=== PATIENT | male | born 1980 | race African-American/Black ===

== ENCOUNTER → 2021-03-16 15:24 | Outpatient (POV) | payer SELFPAY | PROVIDERS: Visit Provider Dermatology | DX: Z00.00 Encounter for general adult medical examination without abnormal findings (principal) ==

== ENCOUNTER 2021-06-26 22:13 | Emergency (ER) | payer OTHER, SELFPAY ==
[2021-06-26 22:14] VITALS: BP 134/82; PULSE 110; RESP 26; TEMP 37.7; O2SAT 94; BMI 26.6
--- NOTE | 2021-06-26 22:30 | XR_ITS ---
PROCEDURE INFORMATION: Exam: XR Chest Exam date and time: 06/26/2021 10:30 PM Age: 41 years old Clinical indication: Cough and fever and shortness of breath; Patient HX: Cough, SOA, fever, nonsmoker, body aches TECHNIQUE: Imaging protocol: XR of the chest. Views: 2 views. COMPARISON: No relevant prior studies available. FINDINGS: Lungs: Unremarkable. No consolidation. Pleural spaces: Unremarkable. No pleural effusion. No pneumothorax. Heart/Mediastinum: Unremarkable. No cardiomegaly. Bones/joints: Unremarkable. IMPRESSION: No acute findings.
--- NOTE | 2021-06-26 22:30 | ECG_ITS ---
APPROVED REPORT Exam: Resting ECG HR:88 bpm ECG Measurements Heart Rate 88 AXES TN 138 P 59 QRSd 74 QRS 44 QT 342 T 36 QTc 413 Conclusion Normal sinus rhythm Possible Left atrial enlargement Late r wave progression Abnormal ECG Electronically signed by : Scottie Castañeda, 06/27/2021 20:40:18
--- NOTE | 2021-06-26 22:33 | HMH.EDGENADL ---
ED Disposition Clinical Impression: Community acquired pneumonia Qualifiers: Laterality: right Lung location: lower lobe of lung Qualified Code(s): J18.9 - Pneumonia, unspecified organism Disposition: Home, Self-Care Condition on Discharge: Good Prescriptions: Amoxicillin [Amoxicillin 500mg Tab] 1,000 mg PO TID 7 Days #21 tab Transmission Status: Pending to [id number] RX: Azithromycin [Zithromax 1gm packet] 1 gm PO ONCE #1 packet Transmission Status: Pending to [id number] Referrals: Jun Aldana [Primary Care Provider] - - Critical Care Critical Care Time: No Attestation: On , the high probability of a clinically significant, sudden or life threatening deterioration of the following system(s) required my full and direct attention, intervention and personal management. The time I documented below is in addition to time spent performing reported procedures but includes the following listed in this critical care notation. Medical Decision Making - Ortiz Inquiry Pt receiving controlled substance: No Vital Signs: 06/26/21 22:14 Temperature 99.9 F H Temperature Source Oral Pulse Rate [Right] 110 H Respiratory Rate 26 H Blood Pressure [Right Arm] 134/82 Blood Pressure Mean [Right Arm] 99 Blood Pressure Source [Right Arm] Automatic Cuff Blood Pressure Position [Right Arm] Sitting 02 Sat by Pulse Oximetry 94 L Oxygen Delivery Method Room Air - Lab Data Lab Results 06/26/21 22:25: Chlamy pneumoniae PCR Not detected, Adenovirus (PCR) Not detected, B. pertussis DNA (PCR) Not detected, Coronavirus OC43 (PCR) Not detected, Coronavirus HKU1 (PCR) Not detected, Coronavirus 229E (PCR) Not detected, SARS-CoV-2 (PCR) Detected A, Coronavirus NL63 (PCR) Not detected, Human Metapneumovir PCR Not detected, Influenza A (H1) PCR Not detected, Influ A (H1N1/09) PCR Not detected, Influenza A (H3) PCR Not detected, Influenza Type A (PCR) Not detected, Influenza Type B (PCR) Not detected, M. pneumoniae (PCR) Not detected, Parainfluenza 1 (PCR) Not detected, Parainfluenza 2 (PCR) Not detected, Parainfluenza 3 (PCR) Not detected, Parainfluenza 4 (PCR) Not detected, RSV (PCR) Not detected, Entero/Rhino (PCR) Not detected 06/26/21 22:35: WBC 3.2 L, RBC 5.14, Hgb 15.7, Hct 44.1, MCV 85.8, MCH 30.5, MCHC 35.6 H, RDW 15.7, Plt Count 142, MPV 9.6, Neut % (Auto) 45.6, Lymph % (Auto) 44.6, Benson % (Auto) 6.2, Eos % (Auto) 2.1, Baso % (Auto) 1.3, Neut # (Auto) 1.5 L, Lymph # (Auto) 1.4, Benson # (Auto) 0.2, Eos # (Auto) 0.1, Baso # (Auto) 0.0 06/26/21 22:35: D-Dimer 1.36 H 06/26/21 22:35: Sodium 141, Potassium 3.6, Chloride 107, Carbon Dioxide 23, Anion Gap 14.6, BUN 10, Creatinine 1.00, Estimated Creat Clear 138, Estimated GFR 83, Est GFR ( Amer) 100, Glucose 112 H, Calcium 7.9 L, Total Bilirubin 0.9, AST 77 H, ALT 66, Alkaline Phosphatase 95, Total Protein 7.8, Albumin 4.2, Globulin 3.6 H, Albumin/Globulin Ratio 1.2 Result diagrams: 06/26/21 22:35 06/26/21 22:35 Orders (Tests/Meds): ED MEDICATIONS Generic Name Dose Route Start Last Admin Trade Name Freq PRN Reason Stop Dose Admin Lactated Ringer's 1,000 mls @ 999 mls/hr 06/26/21 22:30 06/26/21 22:35 Lactated Ringer's 1000 Ml Bag IV 06/26/21 23:30 999 mls/hr .Q1H1M HAKEEM Administration Discontinued Medications Generic Name Dose Route Start Last Admin Trade Name Freq PRN Reason Stop Dose Admin Iopamidol 70 ml 06/26/21 23:36 06/26/21 23:39 Iopamidol-370 (76%);100ml Bottle IV 06/26/21 23:37 70 ml ONCE ONE Administration Sodium Chloride 50 ml 06/26/21 23:36 06/26/21 23:38 0.9 % Sodium Chloride 50 Ml Vial IV 06/26/21 23:37 50 ml ONCE ONE Administration Sodium Chloride 10 ml 06/26/21 23:36 06/26/21 23:39 Sodium Chloride 0.9% 10ml Syr (Rad Only) IV 06/26/21 23:37 10 ml ONCE ONE Administration ORDERS Category Date Time Status ECG Request by /Sonali Stat Y 06/26/21 22:30 Ordered - ECG Data Tracing #1 ECG
[2021-06-26 22:36] LABS: Adenovirus,PCR Not Detected (NotDetected); Coronavirus 229E Not Detected (NotDetected); Coronavirus NL63 Not Detected (NotDetected); Coronavirus OC43 Not Detected (NotDetected); Coronovirus HKU1,PCR Not Detected (NotDetected)
[2021-06-26 22:49] LABS: Basophils % 1.3 % (0.1-2.0); Eosinophils # 0.1 K/mm3 (0.0-0.4); Eosinophils % 2.1 % (0.1-12.0); Hematocrit 44.1 % (42.0-52.0); Hemoglobin 15.7 g/dL (14.1-18.0); Lymphocytes # 1.4 K/mm3 (0.7-4.5); Lymphocytes % 44.6 % (10-50); Mean Corpuscular HGB Conc 35.6 g/dL (31.8-35.4); Mean Corpuscular Hemoglobin 30.5 pg (27.0-31.2); Mean Corpuscular Volume 85.8 fl (80-94); Mean Platelet Volume 9.6 fl (7.4-10.4); Monocytes # 0.2 K/mm3 (0.1-1.0); Monocytes % 6.2 % (1.7-9.3); Neutrophils # 1.5 K/mm3 (1.8-7.8); Neutrophils % 45.6 % (37.0-80.0); Platelet Count 142 K/mm3 (142-424); Red Blood Count 5.14 M/mm3 (4.60-6.20); Red Cell Distribution Width 15.7 % (11.5-17.5); White Blood Count 3.2 K/mm3 (4.8-10.8)
[2021-06-26 23:01] LABS: Alanine Aminotransferase 66 U/L (12-78); Albumin Level 4.2 g/dl (3.5-5.0); Albumin/Globulin Ratio 1.2 (1.1-1.8); Alkaline Phosphatase 95 U/L (38-126); Anion Gap 14.6 mEq/L (5-15); Aspartate Amino Transferase 77 U/L (17-59); Bilirubin,Total 0.9 mg/dl (0.2-1.3); Blood Urea Nitrogen 10 mg/dl (9-20); Calcium 7.9 mg/dl (8.4-10.2); Carbon Dioxide 23 mmol/L (22.0-30.0); Chloride 107 mmol/L (98-107); Creatinine Clearance Estimated 138 mL/min (50-200); Estimated Glomerular Filt Rate 83 ml/min (>60); GFR (African American) 100 ML/MIN (>60); Globulin 3.6 g/dL (1.3-3.2); Glucose 112 mg/dl (74-100); Potassium 3.6 mmoL/L (3.5-5.1); Sodium 141 mmol/L (136-145); Total Protein,Serum 7.8 g/dl (6.3-8.2)
[2021-06-26 23:05] LABS: D-Dimer 1.36 ug/mL (0.0-0.5)
--- NOTE | 2021-06-26 23:11 | CT_ITS ---
PROCEDURE INFORMATION: Exam: CTA Chest With Contrast Exam date and time: 06/26/2021 11:11 PM Age: 41 years old Clinical indication: Cough and fever and shortness of breath; Patient HX: SOA, cough, fever, body aches, elevated d dimer; Additional info: Hypoxia tachycardia elevated d-dimer TECHNIQUE: Imaging protocol: Computed tomographic angiography of the chest with contrast. 3D rendering (Not supervised by radiologist): MIP and/or 3D reconstructed images were created by the technologist. Radiation optimization: All CT scans at this facility use at least one of these dose optimization techniques: automated exposure control; mA and/or kV adjustment per patient size (includes targeted exams where dose is matched to clinical indication); or iterative reconstruction. Contrast material: ISOVUE 370; Contrast volume: 70 ml; Contrast route: INTRAVENOUS (IV); COMPARISON: CR XR CHEST 2V 06/26/2021 10:31 PM FINDINGS: Pulmonary arteries: No evidence of pulmonary embolus to the segmental level. Aorta: Unremarkable. No aortic aneurysm. No aortic dissection. Lungs: Mild bilateral dependent atelectasis. There is a small infiltrates in the right lower lobe base laterally. This is compatible with bacterial pneumonia. Mild bronchial wall thickening seen compatible bronchitis. A calcified nodule seen in the right lower lobe. A 6 mm nodule is seen in the right base laterally on image 243 of series 2. For patients at low risk (minimal or absent history of smoking and of other known risk factors), no routine follow-up is indicated. For patients at high risk (history of smoking or of other known risk factors), consider optional CT Chest at 12 months. (Reference: Vidhi) Pleural spaces: Unremarkable. No pneumothorax. No pleural effusion. Heart: Unremarkable. No cardiomegaly. No pericardial effusion. Lymph nodes: Mild mediastinal adenopathy. Some of these nodes are calcified. Bones/joints: Unremarkable. No acute fracture. Soft tissues: Mild bilateral gynecomastia. IMPRESSION: 1. No evidence of pulmonary embolus 2. Small right lower lobe infiltrate compatible with pneumonia. 3. A 6 mm noncalcified nodule is seen in the right costophrenic angle laterally. If the patient is high risk, consider follow-up in 12 months. REFERENCES: Vidhi Beckford, et al. Guidelines for Management of Incidental Pulmonary Nodules Detected on CT Images: From the Fleischner Society 2017. Radiology. 2017;284(1):228-243.
[2021-06-26 23:58] LABS: Bordetella Pertussis Not Detected (NotDetected); Chlamydophila Pneumoniae, PCR Not Detected (NotDetected); Coronavirus 19, PCR Detected (NotDetected); Human Metapneumovirus Not Detected (NotDetected); Influenza A, PCR Not Detected (NotDetected); Influenza AH1, 2009 Not Detected (NotDetected); Influenza AH1, PCR Not Detected (NotDetected); Influenza AH3,PCR Not Detected (NotDetected); Influenza B, PCR Not Detected (NotDetected); Mycoplasma Pneumoniae, PCR Not Detected (NotDetected); Parainfluenza 1, PCR Not Detected (NotDetected); Parainfluenza 2, PCR Not Detected (NotDetected); Parainfluenza 3, PCR Not Detected (NotDetected); Parainfluenza 4, PCR Not Detected (NotDetected); Respiratory Syncytial Virus Not Detected (NotDetected); Rhinovirus/Enterovirus Not Detected (NotDetected)
[2021-06-27 00:11] VITALS: BP 131/82; PULSE 88; RESP 21; TEMP 37.2; O2SAT 97
--- NOTE | 2021-06-27 00:44 | PC.NURSE ---
I, Dr. Vergara, called the patient to inform him on the pulmonary nodule that was noted on CT and will need outpatient followup. He was advised to contact his PCP for further outpatient workup.
== END 2021-06-27 00:24 | disposition home or self-care (01) ==
PROVIDERS: Emergency Provider Emergency Medicine; PCP Family Medicine
DX: J12.82 Pneumonia due to coronavirus disease 2019 (principal)
CPT/HCPCS: 71046; 71275; 80053; 85025; 85378; 87581; 87633; 87798; 93005; 96365; 99283; Q9967

== ENCOUNTER 2024-01-22 16:27 | Outpatient (CLI) | payer BC, SELFPAY ==
[2024-01-22 16:50] LABS: Basophils % 0.4 % (0.1-2.0); Eosinophils # 0.4 K/mm3 (0.0-0.4); Eosinophils % 5.5 % (0.1-12.0); Hematocrit 45.3 % (42.0-52.0); Hemoglobin 15.1 g/dL (14.1-18.0); Lymphocytes # 2.9 K/mm3 (0.7-4.5); Lymphocytes % 36.2 % (10-50); Mean Corpuscular HGB Conc 33.3 g/dL (31.8-35.4); Mean Corpuscular Hemoglobin 30.9 pg (27.0-31.2); Mean Corpuscular Volume 92.6 fl (80-94); Mean Platelet Volume 8.2 fl (7.4-10.4); Monocytes # 0.4 K/mm3 (0.1-1.0); Monocytes % 4.3 % (1.7-9.3); Neutrophils # 4.3 K/mm3 (1.8-7.8); Neutrophils % 53.6 % (37.0-80.0); Platelet Count 239 K/mm3 (142-424); Red Blood Count 4.89 M/mm3 (4.60-6.20); Red Cell Distribution Width 15.9 % (11.5-17.5)
[2024-01-22 17:11] LABS: Alanine Aminotransferase 127 U/L (12-78); Alkaline Phosphatase 93 U/L (38-126); Aspartate Amino Transferase 79 U/L (17-59); Bilirubin,Indirect 0.6 mg/dL (0.0-0.9); Bilirubin,Total 0.6 mg/dl (0.2-1.3); Bilirubin,Unconjugated 0.5 mg/dL (0.0-1.1); Blood Urea Nitrogen 13 mg/dl (9-20); Calcium 8.8 mg/dl (8.4-10.2); Carbon Dioxide 26 mmol/L (22.0-30.0); Chol/HDL Ratio 4.6 (1-3.5); Cholesterol 152 mg/dl (140-200); Estimated Glomerular Filt Rate 82 ml/min (>60); GFR (African American) 99 ML/MIN (>60); Glucose 105 mg/dl (74-100); HDL Cholesterol 33 mg/dl (40-60); Triglycerides 223 mg/dl (30-150); VLDL Cholesterol 45 mg/dL (0-40)
[2024-01-22 17:12] LABS: Albumin Level 4.1 g/dl (3.5-5.0); Anion Gap 9.1 mEq/L (5-15); Chloride 111 mmol/L (98-107); Magnesium 2.2 mg/dl (1.6-2.3); Potassium 4.1 mmoL/L (3.5-5.1); Sodium 142 mmol/L (136-145); Total Protein,Serum 7.1 g/dl (6.3-8.2)
[2024-01-22 17:22] LABS: Direct LDL Cholesterol 75.18 mg/dL (100-129)
[2024-01-22 17:27] LABS: Free T4 (Free Thyroxine) 0.84 ng/dl (0.78-2.19)
[2024-01-22 17:41] LABS: Thyroid Stimulating Hormone 1.33 uIU/mL (0.465-4.68)
== END 2024-01-22 23:59 ==
LOC: LAB 16:27
PROVIDERS: Visit Provider Internal Medicine
DX: R06.00 Dyspnea, unspecified (principal); R07.9 Chest pain, unspecified; R00.0 Tachycardia, unspecified; R94.31 Abnormal electrocardiogram [ECG] [EKG]; R60.0 Localized edema; R06.83 Snoring; R40.0 Somnolence
CPT/HCPCS: 36415; 80048; 80061; 80076; 83735; 84439; 84443; 85025; 93225

== ENCOUNTER 2024-02-06 12:00 | Outpatient (CLI) | payer BC, SELFPAY ==
--- NOTE | 2024-02-06 12:01 | CT_ITS ---
APPROVED REPORT [employer]: CLINICAL INDICATION Chest Pain TECHNIQUE Image Acquisition: A 128 slice MDCT scanner ([employer] View) was used for data acquisition. A noncontrast coronary calcium scan was performed. A CT attenuation threshold of 130 Hounsfield units (HU) was used for the detection of calcium in contiguous voxels of 1 sq mm in area to be counted as individual lesions. Bolus tracking in the ascending aorta with a threshold of 180 HU was performed. Immediately afterwards, ECG synchronized cardiac CT was then performed from the cardiac base to apex using retrospective gating with ECG tube current modulation. A total of 85 mL of Isovue 370 mg/mL contrast medium was administered at 5 mL/sec followed by a saline flush using a biphasic injection protocol. A tube voltage of 120 KVp was used. The patient received the following medications prior to the cardiac CT. 125 mg of oral metoprolol 15 mg of oral ivabradine 0.8 mg of sublingual nitroglycerin The average heart rate at the time of acquisition was 65 bpm and regular. Image Reconstruction Transaxial images were reconstructed at 0.67 mm slide thickness. Data was reviewed interactively on an advanced workstation capable of 2 and 3-dimensional displays in all conventional reconstruction formats, including multiplanar reformations, maximum intensity projections, curved multiplanar reformations, and volume rendered reconstructions. When applicable, selected routine images describing the relevant coronary anatomy and pathology were saved and sent to PACS. Complications None Technical Quality Overall image quality was good. Coronary artery opacification was adequate. Total DLP (Dose-Length Product) is 1364.6 mGy-cm. The reported value represents the total of one or more individual components during the CT acquisition of this date and at this time, and as such, the same value may appear in more than one CT report depending on the interpreting/reporting physicians. COMPARISON None FINDINGS CT Coronary Calcium Scoring LMA (Left Main Artery) = 0 LAD (Left Anterior Descending) = 0 LCX (Left Coronary Circumflex) = 0 RCA (Right Coronary Artery) = 0 Total Calcium Score = 0 using the AJ-130 method. The interpretation of the calcium heart score is based on the following continuum*: 0 = no calcified plaque detected (risk of coronary artery disease is very low ??? less than 5%) 1-10 = calcium detected in extremely minimal levels (risk of coronary diseases is still low ??? less than 10%) 11-100 = mild levels of plaque detected with certainty (mild or minimal narrowing of heart arteries is likely) 101-400 = definite,at least moderate levels of plaque detected (relatively high risk of a heart attack within 3-5 years) >401-999 = extensive levels of plaque detected (high risk of heart attack, high levels of vascular disease are present, high likelihood of at least one significant coronary narrowing) *The calcium heart score quantifies the burden of coronary calcification/plaque in the coronary arteries. The calcium heart score is not able to evaluate the presence or burden of non-calcified (i.e. soft) plaque. There is no identifiable calcification in the aortic valve, mitral annulus or mitral valve, pericardium, or myocardium. Coronary CT Angiography The coronary arterial system is right dominant. Quantitative Stenosis Grading: Left Main (LM): The left main originates normally from the left sinus of Valsalva. The LM trifurcates into the left anterior descending artery, ramus intermedius, and left circumflex artery. The LM is patent with no evidence of atherosclerosis. Left Anterior Descending (LAD) and Diagonal Branches: The LAD gives off 2 diagonal branches. The LAD and its branches are patent with no evidence of atherosclerosis. There is no evidence of LAD-myocardial bridge. Ramus-intermedius (RI): The RI is patent. Left Circumflex (LCX) and Obtuse Marginals (OM): The LCX gives off 2 Obtuse Marginal (OM) branches. The LCX and its branches are patent with no evidence of atherosclerosis. Right Coronary Artery (RCA): The RCA originates normally from the right sinus of Valsalva. The RCA gives off a posterior descending artery (PDA) and posterolateral (PL) branches. The RCA and its branches are patent with no evidence of atherosclerosis. Non-Coronary Cardiac Findings: Analysis of the left ventricular (LV) structure and function was performed after 3-D reconstruction of the LV from axial images, with user-corrected automatic contouring for assessment of LV volumes and user-defined reconstruction from oblique planes for measurement of 3-D cardiac structure and function. -The left ventricle systolic function is normal. -There is no left atrial appendage filling defect. Two right pulmonary veins and two left pulmonary veins drain normally into the left atrium. -No pericardial thickening or calcification. -Central and branch pulmonary arteries in the [id number] are unremarkable. -Thoracic aorta within the visualized thoracic aortic-branches in the [id number] is unremarkable. Extracardiac Structures No significant extra-cardiac findings. Note, however, that this study is focused on the cardiac findings. IMPRESSION -No coronary calcification with an Agatston score = 0 using the AJ-130 method. -No evidence of significant flow-limiting atherosclerosis of the coronary arteries. -No evidence of coronary anomalies or myocardial bridges. -CAD-RADS 0. Management recommendations per ACC/AHA guidelines*, as clinically appropriate. *Recommendations: CAD RADS 0: Reassurance. Consider non-atherosclerotic causes of chest pain. CAD RADS 1: Consider non-atherosclerotic causes of chest pain. Consider preventive therapy and risk factor modification. CAD RADS 2: Consider non-atherosclerotic causes of chest pain. Consider preventive therapy and risk factor modification, particularly for patients with nonobstructive plaque in multiple segments. CAD RADS 3: Consider further functional testing. Consider symptom-guided anti-ischemic and preventive pharmacotherapy as well as risk factor modification per published guideline statements. CAD RADS 4A: Consider further functional testing or invasive coronary angiography with revascularization per published guideline statements. Consider symptom-guided anti-ischemic and preventive pharmacotherapy as well as risk factor modification per published guideline statements. CAD RADS 4B: Invasive coronary angiography recommended with revascularization per published guideline statements. Consider symptom-guided anti-ischemic and preventive pharmacotherapy as well as risk factor modification per published guideline statements. CAD RADS 5: Consider invasive angiography and/or viability assessment with revascularization per published guideline statements. Consider symptom-guided anti-ischemic and preventive pharmacotherapy as well as risk factor modification per published guideline statements. CRITICAL RESULT None COMMUNICATION Per this written report The coronary and cardiac findings of this CCTA were reviewed, reported, and signed by Malick Hamm MD (Cardiology Manager) Conclusion Electronically signed by : Angelia Hamm MD 02/06/2024 20:52:23
[2024-02-06 12:13] VITALS: BMI 32.3
[2024-02-06] MEDS: IVABRADINE HCL 7.5MG TABLET PO (12:20)
[2024-02-06] MEDS: METOPROLOL TARTRATE 50MG TABLET PO ×2 (12:20→13:15)
[2024-02-06 14:10] VITALS: BP 115/79; PULSE 62; RESP 18; O2SAT 98
[2024-02-06] MEDS: NITROGLYCERIN 0.4MG SL TABLET SL (14:10)
[2024-02-06 14:15] VITALS: BP 104/68; PULSE 64; RESP 18; O2SAT 98
[2024-02-06 14:20] VITALS: BP 104/56; PULSE 68; RESP 18; O2SAT 99
[2024-02-06] MEDS: IOPAMIDOL-370 (76%);100ML BOTTLE 85 ML IV (14:24)
[2024-02-06] MEDS: 0.9 % SODIUM CHLORIDE 50 ML VIAL IV (14:24)
[2024-02-06] MEDS: SODIUM CHLORIDE 0.9% 10ML SYR (RAD ONLY) 10 ML IV (14:24)
[2024-02-06 14:25] VITALS: BP 109/61; PULSE 64; RESP 18; O2SAT 98
--- NOTE | 2024-02-06 14:29 | CA_ITS ---
APPROVED REPORT EXAM: Comprehensive 2D, Doppler, and color-flow Echocardiogram Cloth Shrinker: Grace Nguyễn RVT Ht: 6 ft 1 in Wt: 251lbs BSA: 2.37 BP: 146/84 mmHg Indications: CP,SOA,ABN EKG,EDEMA,SMOKER 2D Dimensions LA Volume 34.60 mL LA Volume Index 14.60 mL/m2 (M/F) 16-34 M-Mode Dimensions RVDd 3.72 cm (0.9-2.6) LA Diam 3.02 cm (1.9-4.0) LVDd 4.30 cm (3.5-5.7) LVDs 2.60 cm (3.5-5.7) IVSd 1.48 cm (0.6-1.1) PWd 0.90 cm (0.6-1.1) EF (Teich) 70.40% FS 39.50% EDV (Teich) 83.10 mL TAPSE 1.70 (<1.7) ESV (Teich) 24.60 mL LV Diastology E Decel Time 193 (160-240 msec) E/A Ratio 1.3 Aortic Valve OMER Index 1.47 cm2/m2 AoV Peak Fam. 99.0 (50-130 cm/s) AO Peak GR. 3.90 mmHg AO Mean GR. 2.10 (<5 mmHg) AO VTI 21.8 (18-25 cm) OMER (VTI) 3.57 (2.5-4.5 cm2) Mitral Valve MV E Max Fam. 61.0 (40-130 cm/s) MV A Velocity 48.0 (40-130 cm/s) E/A Ratio 1.28 MV PHT 57.0 ms Pulmonary Valve PV Peak Velocity 47.0 (50-150 cm/s) Tricuspid Valve TR P. Velocity 247.00 cm/s RAP Estimate 10.00 mmHg RVSP 34.40 mmHg Left Ventricle The left ventricle is normal size. The left ventricular systolic function is normal. The left ventricular ejection fraction is within the normal range. Proximal septal thickening is noted. There is normal LV segmental wall motion. The left ventricular diastolic function is normal. LVEF is 55%. Right Ventricle The right ventricle is mildly dilated. The right ventricular systolic function is borderline hypokinetic. Atria The left atrium size is normal. The right atrium size is normal. There is no Doppler evidence of interatrial shunt. Aortic Valve The aortic valve opens well. There is no aortic valvular stenosis. No aortic regurgitation is present. Mitral Valve The mitral valve is normal in structure. No evidence of mitral valve stenosis. There is no mitral valve regurgitation noted. Tricuspid Valve The tricuspid valve leaflets are thin and pliable. Trace tricuspid regurgitation. There is insufficient TR jet to estimate RVSP. Pulmonic Valve The pulmonary valve is normal in structure. Trace pulmonic regurgitation. Great Vessels The aortic root is normal in size. The ascending aorta is normal in size. IVC is normal in size and collapses >50% with inspiration. Pericardium There is no pericardial effusion. Other Information Study Quality: Fair Conclusion Normal LV systolic function. Mild RV dilation with borderline hypokinetic RV function. No significant valvular stenosis or regurgitation. Electronically signed by : Angelia Hamm MD 02/08/2024 00:31:15
== END 2024-02-06 23:59 | disposition home or self-care (01) ==
PROVIDERS: PCP Internal Medicine; Visit Provider Internal Medicine
DX: R06.00 Dyspnea, unspecified (principal); R07.9 Chest pain, unspecified; R94.31 Abnormal electrocardiogram [ECG] [EKG]; R00.0 Tachycardia, unspecified; R60.0 Localized edema; R06.83 Snoring; R40.0 Somnolence
CPT/HCPCS: 75571; 75574; 93306; Q9967

== ENCOUNTER 2024-03-01 13:46 | Outpatient (CLI) | payer BC, SELFPAY ==
--- NOTE | 2024-03-01 13:49 | CT_ITS ---
FINAL REPORT CLINICAL HISTORY: SOB COMPARISON: 06/26/2021 FINDINGS: Thin section axial CT images of the chest were obtained with contrast. 3D reformatted images were also obtained. This study was performed with techniques to keep radiation doses as low as reasonably achievable (ALARA). Individualized dose reduction techniques using automated exposure control or adjustment of mA and/or kV according to the patient''s size were employed. There is no evidence of pulmonary embolism. There is no evidence of thoracic aortic aneurysm or dissection. There is no evidence of mediastinal or hilar mass or adenopathy. There is no evidence of pulmonary mass or nodule. There is mild atelectasis. Limited images of the upper abdomen are unremarkable. IMPRESSION: No evidence of pulmonary embolism. Mild atelectasis. Reviewed, Interpreted and Dictated by Dru Choudhary III, MD Transcribed by Michelle Belcher Authenticated and [facility]
[2024-03-01] MEDS: 0.9 % SODIUM CHLORIDE 50 ML VIAL IV (14:18)
[2024-03-01] MEDS: SODIUM CHLORIDE 0.9% 10ML SYR (RAD ONLY) 10 ML IV (14:18)
[2024-03-01] MEDS: IOPAMIDOL-370 (76%);100ML BOTTLE 75 ML IV (14:19)
== END 2024-03-01 23:59 ==
LOC: RAD 13:46
PROVIDERS: Visit Provider Internal Medicine Pulmonary Disease
DX: R06.09 Other forms of dyspnea (principal); R07.9 Chest pain, unspecified; I51.7 Cardiomegaly; R00.0 Tachycardia, unspecified; R74.8 Abnormal levels of other serum enzymes; R60.0 Localized edema
CPT/HCPCS: 71275; Q9967

== ENCOUNTER 2024-10-10 12:03 | Outpatient (CLI) | payer BC, SELFPAY ==
--- NOTE | 2024-10-10 12:07 | XR_ITS ---
FINAL REPORT CLINICAL HISTORY: SOB x 1 month COMPARISON: None FINDINGS: Two views of the chest were obtained. The heart size and pulmonary vascularity are within normal limits. The mediastinum is normal. Mild right base opacities likely represent atelectasis or pneumonia. There is no pneumothorax. The bony thorax is intact. IMPRESSION: Mild right base opacities, likely atelectasis or pneumonia. Reviewed, Interpreted and Dictated by Dru Choudhary III, MD Transcribed by Rosalina Kimble Authenticated and [facility]
[2024-10-10 12:16] LABS: Adenovirus,PCR Not Detected (NotDetected); Bordetella Pertussis Not Detected (NotDetected); Chlamydophila Pneumoniae, PCR Not Detected (NotDetected); Coronavirus 19, PCR Not Detected (NotDetected); Coronavirus 229E Not Detected (NotDetected); Coronavirus NL63 Not Detected (NotDetected); Coronavirus OC43 Not Detected (NotDetected); Coronovirus HKU1,PCR Not Detected (NotDetected); Human Metapneumovirus Not Detected (NotDetected); Influenza A, PCR Not Detected (NotDetected); Influenza AH1, 2009 Not Detected (NotDetected); Influenza AH1, PCR Not Detected (NotDetected); Influenza AH3,PCR Not Detected (NotDetected); Influenza B, PCR Not Detected (NotDetected); Microscopic, Urine URINE MICROSCOPIC (MICROSCOPIC); Mycoplasma Pneumoniae, PCR Not Detected (NotDetected); Parainfluenza 1, PCR Not Detected (NotDetected); Parainfluenza 2, PCR Not Detected (NotDetected); Parainfluenza 3, PCR Not Detected (NotDetected); Parainfluenza 4, PCR Not Detected (NotDetected); Respiratory Syncytial Virus Not Detected (NotDetected); Rhinovirus/Enterovirus Not Detected (NotDetected)
[2024-10-10 12:48] LABS: Basophils # 0.1 K/mm3 (0-0.2); Basophils % 0.8 % (0.1-2.0); Eosinophils # 0.8 K/mm3 (0.0-0.4); Eosinophils % 8.8 % (0.1-12.0); Hematocrit 42.1 % (42.0-52.0); Hemoglobin 14.8 g/dL (14.1-18.0); Lymphocytes # 2.6 K/mm3 (0.7-4.5); Lymphocytes % 30.5 % (10-50); Mean Corpuscular HGB Conc 35.1 g/dL (31.8-35.4); Mean Corpuscular Hemoglobin 29.6 pg (27.0-31.2); Mean Corpuscular Volume 84.3 fl (80-94); Mean Platelet Volume 8.3 fl (7.4-10.4); Monocytes # 0.5 K/mm3 (0.1-1.0); Monocytes % 5.2 % (1.7-9.3); Neutrophils # 4.7 K/mm3 (1.8-7.8); Neutrophils % 54.7 % (37.0-80.0); Platelet Count 211 K/mm3 (142-424); Red Blood Count 4.99 M/mm3 (4.60-6.20); Red Cell Distribution Width 16.1 % (11.5-17.5); White Blood Count 8.5 K/mm3 (4.8-10.8)
[2024-10-10 12:56] LABS: Appearance,Urine CLEAR (Clear); Bilirubin,Urine Negative (Negative); Blood, Urine Negative (Negative); Color,Urine YELLOW (Yellow); Glucose,Urine (UA) Negative (Negative); Ketones,Urine Negative (Negative); Leukocyte Esterase,Urine Negative (Negative); Nitrate,Urine Negative (Negative); PH,Urine 7.5 (5.0-8.5); Protein,Urine Negative (Negative); Urobilinogen,Urine 0.2 EU/dl (0.2)
[2024-10-10 13:05] LABS: D-Dimer 1.01 ug/mL (0.0-0.5)
[2024-10-10 13:15] LABS: Alanine Aminotransferase 68 U/L (12-78); Albumin/Globulin Ratio 1.4 (1.1-1.8); Alkaline Phosphatase 96 U/L (38-126); Aspartate Amino Transferase 36 U/L (17-59); Bilirubin,Total 0.8 mg/dl (0.2-1.3); Blood Urea Nitrogen 10 mg/dl (9-20); Calcium 8.6 mg/dl (8.4-10.2); Carbon Dioxide 24 mmol/L (22.0-30.0); Chloride 110 mmol/L (98-107); Chol/HDL Ratio 4.9 (1-3.5); Cholesterol 153 mg/dl (140-200); Estimated Glomerular Filt Rate 92 ml/min (>60); GFR (African American) 111 ML/MIN (>60); Globulin 2.8 g/dL (1.3-3.2); Glucose 81 mg/dl (74-100); HDL Cholesterol 31 mg/dl (40-60); Iron 87 ug/dL (49-181); Sodium 141 mmol/L (136-145); Total Protein,Serum 6.8 g/dl (6.3-8.2); Triglycerides 292 mg/dl (30-150); VLDL Cholesterol 58 mg/dL (0-40)
[2024-10-10 13:21] LABS: Bacteria,Urine Trace /lpf; Squamous Epithelial Cell,Urine Occasional #/hpf (0-5)
[2024-10-10 13:26] LABS: C-Reactive Protein 3.9 mg/L (0-4); Direct LDL Cholesterol 72.08 mg/dL (100-129); Total Iron Binding Capacity 368 ug/dL (261-462); Total Protein,Urine Random < 5.0 mg/dL (0.0-12.0)
[2024-10-10 13:33] LABS: Hemoglobin A1C 5.8 % (4.0-6.0)
[2024-10-10 13:36] LABS: 25-OH Vitamin D, Total < 12.8 ng/mL (30-100)
[2024-10-10 13:46] LABS: Thyroid Stimulating Hormone 0.98 uIU/mL (0.465-4.68)
[2024-10-10 13:50] LABS: Ferritin 87.2 ng/ml (17.9-464)
[2024-10-10 13:52] LABS: Erythrocyte Sedimentation Rate 15 mm/hr (0-15)
[2024-10-10 14:05] LABS: Vitamin B12 732 pg/mL (239-931)
[2024-10-10 14:33] LABS: HIV (1&2) Antibody Rapid NONREACTIVE (NONREACTIVE)
--- NOTE | 2024-10-10 14:48 | CT_ITS ---
PROCEDURE INFORMATION: Exam: CTA Chest With Contrast Exam date and time: 10/10/2024 2:57 PM Age: 44 years old Clinical indication: Shortness of breath; Additional info: Dyspnea, elevated d-dimer TECHNIQUE: Imaging protocol: Computed tomographic angiography of the chest with contrast. Exam focused on the arteries. 3D rendering (Not supervised by radiologist): MIP and/or 3D reconstructed images were created by the technologist. Radiation optimization: All CT scans at this facility use at least one of these dose optimization techniques: automated exposure control; mA and/or kV adjustment per patient size (includes targeted exams where dose is matched to clinical indication); or iterative reconstruction. Contrast material: ISOVUE 370; Contrast volume: 100 ml; Contrast route: INTRAVENOUS (IV); COMPARISON: No relevant prior studies available. FINDINGS: Pulmonary arteries: Nondiagnostic contrast bolus for detection of pulmonary emboli; contrast material is in the pulmonary veins and aorta rather than pulmonary arteries. Aorta: Unremarkable. No aortic aneurysm. No aortic dissection. Lungs: Calcified right lower lobe granuloma. Pleural spaces: Unremarkable. No pneumothorax. No pleural effusion. Heart: Unremarkable. No cardiomegaly. No pericardial effusion. Lymph nodes: Calcified right hilar granulomata. No enlarged lymph nodes. Bones/joints: Spondylosis of the spine. Soft tissues: Unremarkable. IMPRESSION: Nondiagnostic study for detection of pulmonary emboli.
[2024-10-10] MEDS: IOPAMIDOL-370 (76%);100ML BOTTLE 100 ML IV (15:07)
[2024-10-10] MEDS: 0.9 % SODIUM CHLORIDE 50 ML VIAL IV (15:07)
[2024-10-10] MEDS: SODIUM CHLORIDE 0.9% 10ML SYR (RAD ONLY) 10 ML IV (15:07)
[2024-10-11 07:24] LABS: HCV Ab Non Reactive (Non Reactive)
[2024-10-12 12:16] LABS: Peripheral Smear Review Scanned Result
== END 2024-10-10 23:59 | disposition home or self-care (01) ==
LOC: LAB 12:04
PROVIDERS: PCP Nurse Practitioner Family; Visit Provider Nurse Practitioner Family
DX: R06.09 Other forms of dyspnea (principal); Z11.4 Encounter for screening for human immunodeficiency virus [HIV]; Z13.1 Encounter for screening for diabetes mellitus; E78.5 Hyperlipidemia, unspecified; R53.83 Other fatigue; I10 Essential (primary) hypertension; E53.8 Deficiency of other specified B group vitamins; Z11.59 Encounter for screening for other viral diseases; I51.7 Cardiomegaly
CPT/HCPCS: 36415; 71046; 71275; 80050; 80053; 80061; 81001; 82306; 82607; 82728; 83036; 83540; 83550; 84156; 84439; 84443; 85025; 85378; 85651; 86140; 86803; 87086; 87389; 87633; Q9967

== ENCOUNTER 2024-10-11 08:07 | Outpatient (CLI) | payer BC, SELFPAY ==
--- NOTE | 2024-10-11 08:10 | CT_ITS ---
PROCEDURE INFORMATION: Exam: CTA Chest With Contrast Exam date and time: 10/11/2024 8:15 AM Age: 44 years old Clinical indication: Shortness of breath and other: Chest pain; Patient HX: Chest pain, SOA TECHNIQUE: Imaging protocol: Computed tomographic angiography of the chest with contrast. Exam focused on the arteries. 3D rendering (Not supervised by radiologist): MIP and/or 3D reconstructed images were created by the technologist. Radiation optimization: All CT scans at this facility use at least one of these dose optimization techniques: automated exposure control; mA and/or kV adjustment per patient size (includes targeted exams where dose is matched to clinical indication); or iterative reconstruction. Contrast material: ISOVUE 370; Contrast volume: 85 ml; Contrast route: INTRAVENOUS (IV); COMPARISON: CT ANGIO CHEST PE PROTOCOL 10/10/2024 2:57 PM FINDINGS: Pulmonary arteries: Normal. No pulmonary emboli. Aorta: Unremarkable. No aortic aneurysm. No aortic dissection. Lungs: Unremarkable. No consolidation. No masses. Calcified granuloma right lower lobe. Pleural spaces: Unremarkable. No pneumothorax. No pleural effusion. Heart: Unremarkable. No cardiomegaly. No pericardial effusion. Lymph nodes: Unremarkable. No enlarged lymph nodes. Bones/joints: Unremarkable. No acute fracture. Soft tissues: Unremarkable. IMPRESSION: Suboptimal timing of the contrast bolus. No acute findings.
[2024-10-11] MEDS: SODIUM CHLORIDE 0.9% 10ML SYR (RAD ONLY) 10 ML IV (08:51)
[2024-10-11] MEDS: 0.9 % SODIUM CHLORIDE 50 ML VIAL IV (08:51)
[2024-10-11] MEDS: IOPAMIDOL-370 (76%);100ML BOTTLE 100 ML IV (08:51)
== END 2024-10-11 23:59 | disposition home or self-care (01) ==
LOC: RAD 08:08
PROVIDERS: PCP Nurse Practitioner Family; Visit Provider Nurse Practitioner Family
DX: R06.09 Other forms of dyspnea (principal)
CPT/HCPCS: Q9967

== ENCOUNTER 2024-10-21 15:00 | Outpatient (CLI) | payer BC, SELFPAY ==
[2024-10-21] MEDS: ALBUTEROL 0.083% 2.5 MG/3 ML NEB IH (15:26)
--- NOTE | 2024-10-21 15:27 | PC.NURSE ---
Pre and Post Spirometry completed without incident. Albuterol 0.083% given via HHN, per written protocol, Pt tolerated tx well.
== END 2024-10-21 23:59 | disposition home or self-care (01) ==
LOC: RT 15:00
PROVIDERS: PCP Nurse Practitioner Family; Visit Provider Nurse Practitioner Family
DX: R06.09 Other forms of dyspnea (principal)
CPT/HCPCS: 94010; 94060; J7613

== ENCOUNTER 2024-11-01 12:22 | Emergency (ER) | payer BC, SELFPAY ==
[2024-11-01] VITALS (13 sets, daily range): BP systolic 131–143; BP diastolic 84–99; PULSE 76–102; RESP 14–26; TEMP 36.4–37; O2SAT 91–99; BMI 33.0
--- NOTE | 2024-11-01 12:30 | ECG_ITS ---
APPROVED REPORT Exam: Resting ECG HR:103 bpm ECG Measurements Heart Rate 103 AXES ID 152 P 63 QRSd 85 QRS 40 QT 334 T 58 QTc 394 Conclusion SINUS TACHYCARDIA POSSIBLE LEFT ATRIAL ENLARGEMENT [-0.1mV P-WAVE IN V1/V2] ABNORMAL RHYTHM ECG UNCONFIRMED REPORT Electronically signed by : SHILA CASTANEDA, 11/03/2024 04:32:11
--- NOTE | 2024-11-01 12:55 | XR_ITS ---
FINAL REPORT CLINICAL HISTORY: SOB COMPARISON: 10/10/2024 FINDINGS: Two views of the chest were obtained. The heart size and pulmonary vascularity are within normal limits. The mediastinum is normal. Bronchial wall thickening is consistent with bronchitis. There is no pneumothorax. The bony thorax is intact. IMPRESSION: Bronchitis Reviewed, Interpreted and Dictated by Dru Choudhary III, MD Transcribed by Rosalina Kimble Authenticated and [facility]
--- NOTE | 2024-11-01 12:58 | CT_ITS ---
FINAL REPORT TECHNIQUE: Then section axial CT images of the chest were obtained with contrast. Three-D reformatted images were also obtained.This study was performed with techniques to keep radiation doses as low as reasonably achievable (ALARA). Individualized dose reduction techniques using automated exposure control or adjustment of mA and/or kV according to the patient''s size were employed. CLINICAL HISTORY: Concern for PE, SOB / tachycardia COMPARISON: 10/10/2024 FINDINGS: There is no evidence of pulmonary embolism. There is no evidence of thoracic aortic aneurysm or dissection. There is no evidence of mediastinal or hilar mass or adenopathy. There is no evidence of pulmonary mass or suspicious nodule. There is diffuse bronchial wall thickening consistent with bronchitis. Limited images of the upper abdomen are unremarkable. IMPRESSION: No evidence of pulmonary embolism. Findings consistent with bronchitis. Reviewed, Interpreted and Dictated by Dru Choudhary III, MD Transcribed by Mariama Aguirre Authenticated and [facility]
[2024-11-01] MEDS: METHYLPREDNISOLONE SOD SUCC 125MG VIAL 125 MG IV (13:06)
[2024-11-01] MEDS: IPRATROPIUM/ALBUTEROL 3 ML NEB IH (13:07)
[2024-11-01] MEDS: SODIUM CHLORIDE 0.9% 10ML FLUSH SYRINGE 10 ML IV (13:07)
--- NOTE | 2024-11-01 13:09 | ED_ITS ---
Discharge Plan Disposition Patient Disposition: Home, Self-Care Condition: Good Prescriptions Prescriptions: New benzonatate 100 mg capsule 100 mg PO TID PRN (Reason: cough) Qty: 30 0RF dextromethorphan HBr 15 mg capsule 30 mg PO Q8H PRN (Reason: cough) 5 Days Qty: 30 0RF No Action Breztri Aerosphere 160-9-4.8 mcg/actuation HFA aerosol inhaler 1 inh inhalation BID Qty: 10.7 5RF esomeprazole magnesium [Nexium] 20 mg capsule,delayed release(DR/EC) 20 mg PO BID Qty: 60 0RF albuterol sulfate 90 mcg/actuation HFA aerosol inhaler 2 puff inhalation Q4-6H PRN (Reason: shortness of breath or wheezing) Qty: 8.5 5RF prednisone 20 mg tablet 20 mg PO BID Qty: 9 0RF Rx Instructions: Take 20 mg (1 tab) every morning and again at 2 PM for 3 days. Then decrease to 10 mg (1/2 half tab) every morning and again at 2 PM for 3 days. Then stop. Ubrelvy 100 mg tablet PO Patient Comments: TAKE 1 TABLET BY MOUTH NEEDED FOR HEADACHE. MAY REPEAT DOSE ONCE AFTER 2 HOURS cholecalciferol (vitamin D3) 1,250 mcg (50,000 unit) capsule 1,250 mcg PO WEEKLY Qty: 12 3RF levofloxacin 750 mg tablet 750 mg PO DAILY 5 Days Qty: 5 0RF albuterol sulfate 2.5 mg /3 mL (0.083 %) solution for nebulization 2.5 mg inhalation Q6H PRN (Reason: shortness of breath or wheezing) Qty: 180 0RF Referrals Follow up/Referrals: Kamala Dawn APRN [Primary Care Provider] - See instructions Clinical Impressions Clinical Impression: Shortness of breath, Rash, Orthopnea, Bronchitis, Cough Print Language Print Language: [place] Island[place] Discharge ED Provider: Bassem Bonilla General Chief Complaint: Shortness of Breath/Dyspnea Stated Complaint: soa and rash on chest Time Seen by Provider: 11/01/24 12:41 Mode of Arrival: Family Vehicle Source of Information: Patient and Medical Record Limitations: No Limitations Description of Symptoms (Recalled from ER Triage Doc. by RN): Pt c/o SOA, dyspnea, productive cough, and hard time getting my breathe . Pt denies any chest pain. He reports a intermittent rash to his chest that has also spread to LLE. He has a hx of asthma and has been using neb and rescue inhalers wo relief. History of Present Illness HPI narrative: 44-year-old male presents to ED with complaint of shortness of breath and rash for the last 2 months. States that it has become a little worse in the last couple days however he is more concerned because it has been ongoing and is not improving. Past medical history of asthma, right ventricular dilation, elevated liver enzymes, migraines. Currently having some shortness of breath has been having to use his rescue inhaler and home nebulizer treatments with increased frequency. States that he gets very short of breath whenever he lays flat. Has had swelling in bilateral lower extremities. Rash has been on his chest as well as his anterior lower legs. Was diagnosed with pneumonia in September treated with steroid injection, p.o. steroids for a week and azithromycin. Currently follows with cardiology and pulmonology. Denies chest pain, nausea, vomiting, other symptoms at this time including abdominal pain. Please note that above description of symptoms, in this electronic medical record under categorization of recalled from ER triage doctor by RN are reflective of an initial nursing assessment, however, is not reflective of my full history and physical exam that was personally taken and clarified. Consequentially, this preceding description of symptoms, which may include the patient's categorized chief complaint in the EMR, do not reflect my personal clinical impression, and the ultimate description of history of present illness and patient stated complaints should be deferred to this section of the note. Unless stated otherwise or congruent with this section of the note, additional signs, symptoms, or incongruence should be interpreted as inaccurate with my clinical impression. Related Data Home Medications ?Medication ?Instructions ?Recorded ?Confirmed ubrogepant 100 mg tablet (Ubrelvy) mg PO 02/28/24 10/10/24 Previous Rx's ?Medication ?Instructions ?Recorded albuterol sulfate 90 mcg/actuation 2 puff inhalation Q4-6H PRN 10/10/24 aerosol inhaler shortness of breath or wheezing #8.5 grams budesonide 160 mcg-glycopyr 9 1 inh inhalation BID #10.7 grams 10/10/24 mcg-formot 4.8 mcg/actuation HFA inhaler (Breztri Aerosphere) esomeprazole magnesium 20 mg 20 mg PO BID #60 caps 10/10/24 capsule,delayed release (Nexium) prednisone 20 mg tablet 20 mg PO BID #9 tabs 10/10/24 cholecalciferol (vitamin D3) 1,250 1,250 mcg PO WEEKLY #12 caps 10/11/24 mcg (50,000 unit) capsule levofloxacin 750 mg tablet 750 mg PO DAILY 5 days #5 tabs 10/16/24 albuterol sulfate 2.5 mg/3 mL 2.5 mg (3 mL) inhalation Q6H PRN 10/18/24 (0.083 %) solution for nebulization shortness of breath or wheezing #180 mL benzonatate 100 mg capsule 100 mg PO TID PRN cough #30 caps 11/01/24 dextromethorphan HBr 15 mg capsule 30 mg (2 x 15 mg) PO Q8H PRN cough 11/01/24 5 days #30 caps Allergies Allergy/AdvReac Type Severity Reaction Status Date / Time No Known Allergies Allergy Verified 10/10/24 11:35 [facility] Disclaimer: The information contained in this section may have been updated after the patient was seen, as this information can be updated by other users. Medical History (Updated 11/01/24 @ 15:48 by Bassem Bonilla DO) Chest pain, atypical Chest pain Edema of both lower extremities Community acquired pneumonia Dyspnea on exertion Elevated liver enzymes Tingling in extremities Sinus tachycardia Abnormal electrocardiogram [ECG] [EKG] Family History Grandmother Cancer Diabetes Mother Diabetes Hypertension Grandfather Heart attack Social History Smoking Status: Former smoker tobacco type: cigars alcohol intake: current alcohol intake frequency: a few times a month substance use type: denies use current occupational status: employed Travel in the last 8 weeks: Inside the [place] Other Medical History Have you received the Flu Vaccine for this season: No Have you received the Pneumonia Vaccine: No ROS Obtained: Yes Systems reviewed as appropriate & no additional complaints except as documented Physical Exam General General appearance: alert and in no apparent distress Head Head exam: atraumatic and normocephalic Eye Eye exam: Present normal appearance and EOMI ENT ENT exam: Present normal exam Neck Neck exam: Present normal inspection Chest Chest inspection: Present normal inspection, symmetric chest wall rise and rash (Erythematous macular papular rash noted on anterior chest); Absent tenderness Respiratory Respiratory exam: Present wheezes; Absent respiratory distress, stridor, accessory muscle use or prolonged expiratory phase Cardiovascular Cardiovascular exam: Present normal rhythm, tachycardia and normal heart sounds; Absent rubs Abdominal Exam Abdominal exam: Present soft and normal bowel sounds; Absent distention, tenderness, guarding or rebound exam: Present deferred Extremities Exam Extremities exam: Present full ROM; Absent normal inspection (Bilateral lower extremities with nonpitting edema, venous stasis change noted, rash noted on anterior lower extremities, left lower extremity with red area reminiscent of erythema nodosum) or tenderness Back Exam Back exam: Present normal inspection Neurological Exam Neurological exam: Present alert and oriented X3 Psychiatric Psychiatric exam: Present normal affect and normal mood Skin Skin exam: Present warm, dry, intact and normal color; Absent rash HEART Score HEART Score HEART Score assessment performed?: Yes History (anamnesis): Slightly suspicious ECG: Non-specific disturbance Age: <45 years Risk factors: 1-2 risk factors Troponin: </= normal limit HEART Score: 2 Critical Care Critical Care Time Critical Care Time: No Medical Decision Making Medical Records Medical records reviewed: Yes I reviewed the patient's medical records. [facility] Inquiry Pt receiving controlled substance: No Vital Signs Vital Signs: 11/01/24 12:24 11/01/24 13:00 11/01/24 14:00 Temperature 97.5 F L Temperature Source Oral Pulse Rate 95 H 88 Pulse Rate [Right] 95 H Respiratory Rate 26 H Blood Pressure 132/85 136/91 H Blood Pressure [Right Arm] 138/90 Blood Pressure Mean 100 99 Blood Pressure Mean [Right Arm] 106 Blood Pressure Source [Right Arm] Automatic Cuff 02 Sat by Pulse Oximetry 93 L 99 95 Oxygen Delivery Method Room Air Room Air Room Air Lab Data Labs: Lab Results 11/01/24 12:35: WBC 8.7, RBC 5.13, Hgb 15.3, Hct 44.6, MCV 87.0, MCH 29.7, MCHC 34.2, RDW 16.2, Plt Count 231, MPV 8.7, Neut % (Auto) 58.2, Lymph % (Auto) 27.4, [place] % (Auto) 5.3, Eos % (Auto) 8.6, Baso % (Auto) 0.4, Neut # (Auto) 5.1, Lymph # (Auto) 2.4, [place] # (Auto) 0.5, Eos # (Auto) 0.8 H, Baso # (Auto) 0.0, Sodium 142, Potassium 3.6, Chloride 110 H, Carbon Dioxide 27, Anion Gap 8.6, BUN 13, Creatinine 1.10, Estimated Creat Clear 139, Estimated GFR 73, Est GFR ( Amer) 88, Glucose 92, Calcium 9.0, Total Bilirubin 1.2, AST 40, ALT 51, Alkaline Phosphatase 88, Troponin I < 0.01, NT-Pro-B Natriuret Pep < 20.0, Total Protein 7.6, Albumin 4.2, Globulin 3.4 H, Albumin/Globulin Ratio 1.2 11/01/24 12:55: VBG pH 7.37, VBG pCO2 44.3, VBG pO2 57.0 H, VBG HCO3 24.8, VBG Total CO2 26.2, VBG O2 Saturation 88.4 H, VBG Base Excess -0.5, VBG Lactic Acid 2.1 H 11/01/24 12:35 11/01/24 12:35 Response Orders (Tests/Meds): ED MEDICATIONS Generic Name Dose Route Start Last Admin Trade Name Freq PRN Reason Stop Dose Admin Sodium Chloride 10 ml 11/01/24 12:55 11/01/24 13:07 Sodium Chloride 0.9% 10ml Flush Syringe IV 12/01/24 12:54 10 ml NEEDED PRN Administration Maintain IV Site Sodium Chloride 10 ml 11/01/24 13:52 11/01/24 13:53 Sodium Chloride 0.9% 10ml Syr (Rad Only) IV 12/01/24 13:51 10 ml NEEDED PRN Administration Maintain IV Site Discontinued Medications Generic Name Dose Route Start Last Admin Trade Name Freq PRN Reason Stop Dose Admin Albuterol/Ipratropium 3 ml 11/01/24 12:55 11/01/24 13:07 Ipratropium/Albuterol 3 Ml Neb IH 11/01/24 12:56 3 ml ONCE ONE Administration Iopamidol 70 ml 11/01/24 13:52 11/01/24 13:53 Iopamidol-370 (76%);100ml Bottle IV 11/01/24 13:53 70 ml ONCE ONE Administration Methylprednisolone Sodium Succinate 125 mg 11/01/24 12:55 11/01/24 13:06 Methylprednisolone Sod Succ 125mg Vial IV 11/01/24 12:56 125 mg ONCE ONE Administration Sodium Chloride 50 ml 11/01/24 13:52 11/01/24 13:53 0.9 % Sodium Chloride 50 Ml Vial IV 11/01/24 13:53 50 ml ONCE ONE Administration ORDERS Category Date Time Status CTA Chest [CT angio chest PE protocol] Stat Cat Scan 11/01/24 12:58 Completed XR chest 2V Stat Exams 11/01/24 12:55 Taken BNP [NT Pro Brain Natriuretic Pep.] Stat Lab 11/01/24 12:35 Completed CMP [Comprehensive Metabolic Panel] Stat Lab 11/01/24 12:35 Completed Complete Blood Count Auto Diff Stat Lab 11/01/24 12:35 Completed Full Resp Panel w/COVID ([facility]) Routine Lab 11/01/24 13:05 Received Trop I [Troponin I] Stat Lab 11/01/24 12:35 Completed Troponin I Q3H Lab 11/01/24 16:00 Ordered Troponin I Q3H Lab 11/01/24 19:00 Ordered Venous Blood Gas Stat RT 11/01/24 12:55 Completed ECG Data Tracing #1: Attestation: I reviewed this ECG and interpreted as documented below: ECG Narrative: Sinus tachycardia with rate 103, normal axis, normal intervals, no noted ST elevation MDM Narrative Medical Decision Narrative: Patient with history and exam per above presenting for evaluation of shortness of breath Diagnoses considered include upper respiratory virus, bronchitis, pneumonia, PE, sarcoidosis, heart failure, asthma, CAD ED workup and treatment included: As above. Chart review shows patient had echocardiogram performed in January showing normal left ventricular systolic function, mild right ventricular dilation with borderline hypokinetic right ventricular function. No valvular stenosis or regurgitation at that time. CTA PE protocol was performed October 10 due to shortness of breath showed was nondiagnostic for detection of pulmonary emboli due to incomplete filling of contrast and pulmonary arteries. Patient did have calcified hilar granuloma, prior x-rays with findings of granulomatous disease. Due to shortness of breath, tachycardia concern does exist for PE, also concern for possible heart failure given prior echocardiogram right ventricular dilation with ongoing edema of lower extremities and shortness of breath when laying down. Labs were independently interpreted by me, significant for CBC grossly nonactionable, no noted leukocytosis or anemia VBG with no noted acidosis, lactate mildly elevated troponin negative, BNP negative. CMP grossly nonactionable. Imaging was independently visualized and interpreted by me, significant for chest x-ray with no noted acute cardiopulmonary process on my review, CTA PE protocol with no noted pulmonary embolism, no noted focal pneumonia, no noted findings of atypical pneumonia, no pleural effusion, no noted hilar lymphadenopathy or granuloma. Please refer to radiology report for full details. My clinical impression at this time is most consistent with bronchitis, orthopnea, asthma, atypical dermatitis. On reassessment patient remains hemodynamically stable. Rash is somewhat improved. At this time patient medically clear for discharge with outpatient follow-up. 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 Patient will trial Benadryl cream for rash. Prescribing cough medicine. Patient given albuterol MDI inhaler prior to leaving ED. Given strict instructions to return to ED if symptoms worsen. Patient agreeable with this plan. Discharged home with hemodynamically stable vitals. I discussed my clinical impression with patient and answered all questions. At this time, the evidence for any other entities in the differential is insufficient to warrant any further testing or ED observation. This was explained to the patient. The patient was advised that persistent or worsening symptoms require further evaluation.
[2024-11-01 13:11] LABS: Basophils % 0.4 % (0.1-2.0); Eosinophils # 0.8 K/mm3 (0.0-0.4); Eosinophils % 8.6 % (0.1-12.0); Hematocrit 44.6 % (42.0-52.0); Hemoglobin 15.3 g/dL (14.1-18.0); Lymphocytes # 2.4 K/mm3 (0.7-4.5); Lymphocytes % 27.4 % (10-50); Mean Corpuscular HGB Conc 34.2 g/dL (31.8-35.4); Mean Corpuscular Hemoglobin 29.7 pg (27.0-31.2); Mean Platelet Volume 8.7 fl (7.4-10.4); Monocytes # 0.5 K/mm3 (0.1-1.0); Monocytes % 5.3 % (1.7-9.3); Neutrophils # 5.1 K/mm3 (1.8-7.8); Neutrophils % 58.2 % (37.0-80.0); Platelet Count 231 K/mm3 (142-424); Red Blood Count 5.13 M/mm3 (4.60-6.20); Red Cell Distribution Width 16.2 % (11.5-17.5); White Blood Count 8.7 K/mm3 (4.8-10.8)
[2024-11-01 13:11] LABS: VBG Base Excess -0.5 mmol/L (-2.4-2.3); VBG HCO3 24.8 mmol/L (23-30); VBG Oxygen Saturation 88.4 % (50-70); VBG PCO2 44.3 mmol/L (35-51); VBG PH 7.37 mmol/L (7.31-7.41); VBG Total CO2 26.2 mmol/L (23-27)
[2024-11-01 13:13] LABS: Lactate Venous 2.1 mmol/L (0.4-2.0)
[2024-11-01 13:23] LABS: NT Pro Brain Natriuretic Pep. < 20.0 pg/mL (0-125)
[2024-11-01 13:26] LABS: Troponin I < 0.01 ng/ml (0.00-0.034)
[2024-11-01 13:40] LABS: Chloride 110 mmol/L (98-107)
[2024-11-01 13:41] LABS: Albumin Level 4.2 g/dl (3.5-5.0); Potassium 3.6 mmoL/L (3.5-5.1); Sodium 142 mmol/L (136-145)
[2024-11-01 13:43] LABS: Blood Urea Nitrogen 13 mg/dl (9-20); Creatinine Clearance Estimated 139 mL/min (50-200); Estimated Glomerular Filt Rate 73 ml/min (>60); GFR (African American) 88 ML/MIN (>60)
[2024-11-01 13:44] LABS: Alanine Aminotransferase 51 U/L (12-78); Albumin/Globulin Ratio 1.2 (1.1-1.8); Alkaline Phosphatase 88 U/L (38-126); Anion Gap 8.6 mEq/L (5-15); Aspartate Amino Transferase 40 U/L (17-59); Bilirubin,Total 1.2 mg/dl (0.2-1.3); Carbon Dioxide 27 mmol/L (22.0-30.0); Globulin 3.4 g/dL (1.3-3.2); Glucose 92 mg/dl (74-100); Total Protein,Serum 7.6 g/dl (6.3-8.2)
[2024-11-01] MEDS: 0.9 % SODIUM CHLORIDE 50 ML VIAL IV (13:53)
[2024-11-01] MEDS: SODIUM CHLORIDE 0.9% 10ML SYR (RAD ONLY) 10 ML IV (13:53)
[2024-11-01] MEDS: IOPAMIDOL-370 (76%);100ML BOTTLE 70 ML IV (13:53)
[2024-11-01] MEDS: ALBUTEROL-HFA 90MCG/PUFF INHALER 8GM 2 PUFF IH (16:01)
[2024-11-01] MEDS: AEROCHAMBER/OPTIHALER 1 UNIT MC (16:03)
[2024-11-01 16:22] LABS: Coronavirus 19, PCR Not Detected (NotDetected); Influenza A, PCR Not Detected (NotDetected); Influenza B, PCR Not Detected (NotDetected)
[2024-11-01 17:12] LABS: RSV Rapid Ab Screen Negative (Negative)
[2024-11-01 17:14] LABS: Reflex Lactic Add Lactic Reflex
== END 2024-11-01 16:13 | disposition home or self-care (01) ==
PROVIDERS: Emergency Provider Student in an Organized Health Care Education/Training Program; PCP Nurse Practitioner Family
DX: J40 Bronchitis, not specified as acute or chronic (principal); J30.9 Allergic rhinitis, unspecified; R06.02 Shortness of breath; R06.01 Orthopnea; R05.9 Cough, unspecified; R21 Rash and other nonspecific skin eruption; R07.9 Chest pain, unspecified
CPT/HCPCS: 71046; 71275; 80053; 82803; 83880; 84484; 85025; 87636; 87807; 93005; 96374; 99285; J2919; J7620; Q9967

== ENCOUNTER 2024-12-04 12:16 | Outpatient (CLI) | payer BC, SELFPAY ==
--- NOTE | 2024-12-04 12:19 | XR_ITS ---
FINAL REPORT TECHNIQUE: Chest PA & Lateral CLINICAL HISTORY: cough, SOA COMPARISON: 11/01/2024 FINDINGS: 2 views of the chest were performed. The heart size is normal. The mediastinum is within normal limits. There is no acute cardiopulmonary process. There are no pleural effusions. There is no pneumothorax. The bony thorax appears intact. IMPRESSION: No acute cardiopulmonary process. Reviewed, Interpreted and Dictated by Luis F Hayes MD Transcribed by Rosalina Kimble Authenticated and [facility]
[2024-12-04 16:40] LABS: Basophils % 0.5 % (0.1-2.0); Eosinophils # 0.7 K/mm3 (0.0-0.4); Eosinophils % 8.6 % (0.1-12.0); Hematocrit 41.9 % (42.0-52.0); Lymphocytes # 2.3 K/mm3 (0.7-4.5); Lymphocytes % 27.3 % (10-50); Mean Corpuscular HGB Conc 35.8 g/dL (31.8-35.4); Mean Corpuscular Hemoglobin 29.2 pg (27.0-31.2); Mean Corpuscular Volume 81.7 fl (80-94); Mean Platelet Volume 10.9 fl (7.4-10.4); Monocytes # 0.4 K/mm3 (0.1-1.0); Monocytes % 4.8 % (1.7-9.3); Neutrophils # 4.9 K/mm3 (1.8-7.8); Neutrophils % 58.6 % (37.0-80.0); Platelet Count 249 K/mm3 (142-424); Red Blood Count 5.13 M/mm3 (4.60-6.20); Red Cell Distribution Width 14.6 % (11.5-17.5); White Blood Count 8.4 K/mm3 (4.8-10.8)
== END 2024-12-04 23:59 | disposition home or self-care (01) ==
LOC: RAD 12:17
PROVIDERS: PCP Internal Medicine; Visit Provider Internal Medicine
DX: J40 Bronchitis, not specified as acute or chronic (principal); R05.9 Cough, unspecified
CPT/HCPCS: 71046; 85025

== ENCOUNTER 2024-12-09 08:07 | Outpatient (CLI) | payer BC, SELFPAY | END 2024-12-09 23:59 | disposition home or self-care (01) | LOC: LAB 08:07 | PROVIDERS: PCP Internal Medicine; Visit Provider Internal Medicine | DX: J20.9 Acute bronchitis, unspecified (principal) | CPT/HCPCS: 87070; 87205 ==